=== PATIENT | male | born 1955 | race Caucasian/White ===

== ENCOUNTER 2019-09-21 20:28 | Emergency (ER) | payer SELFPAY | END 2019-09-22 03:17 | disposition left against medical advice (07) | LOC: ER 20:28 | DX: R10.9 Unspecified abdominal pain (principal); Z53.21 Procedure and treatment not carried out due to patient leaving prior to being seen by health care provider ==

== ENCOUNTER 2019-12-16 16:57 | Emergency (ER) | payer SELFPAY ==
[~2019-12-16] VITALS: Ht 177.8 cm; Wt 82.0 kg
[2019-12-16] MEDS ORDERED: ONDANSETRON HCL 4MG/2ML INJ IV STA ×3 (17:25→20:49)
[2019-12-16] MEDS ORDERED: MORPHINE SULFATE 4 MG/ML CPJ (NOT FOR IM USE) IV STA ×3 (17:25→20:49)
[2019-12-16] MEDS ORDERED: SODIUM CHLORIDE 0.9% 1,000 ML IV ONE (17:25)
[2019-12-16] MEDS ORDERED: KETOROLAC 15MG/ML VIAL IV ONE (17:30)
[2019-12-16 17:47] LABS: HEMATOCRIT. 38.8 % (42.0-52.0); HEMOGLOBIN. 13.6 g/dL (14.0-18.0); MEAN CORPUSCULAR HEMOGLOBIN 30.2 pg (28.0-32.0); MEAN CORPUSCULAR VOLUME 86.2 fL (80.0-94.0); MEAN PLATELET VOLUME 6.9 fl (7.4-10.4); PLATELET 237 x1000/uL (130-400)
[2019-12-16 17:54] LABS: CHLORIDE 104 mEq/L (98-107)
[2019-12-16 18:00] LABS: PLATELET ESTIMATE NORMAL
[2019-12-16] MEDS ORDERED: VANCOMYCIN 1 G PREMIX 200 ML IV SCH (18:15)
[2019-12-16] MEDS ORDERED: PIPERACILLIN/TAZ 3.375G PREMIX 50 ML IV ONE (18:15)
[2019-12-16] MEDS ORDERED: CLINDAMYCIN 600 MG in DEXTROSE 5% WATER 50 ML IV ONE (20:45)
[2019-12-16] MEDS ORDERED: TETANUS, DIPHTHERIA, PERTUSSIS VAC/PF 0.5ML (>7YR OLD) IM ONE (21:00)
[2019-12-16 23:16] VITALS: BP 161/80
== END 2019-12-16 23:58 | disposition left against medical advice (07) ==
LOC: ER 16:57
DX: L03.114 Cellulitis of left upper limb (principal); S63.602A Unspecified sprain of left thumb, initial encounter; S63.611A Unspecified sprain of left index finger, initial encounter; I10 Essential (primary) hypertension; W19.XXXA Unspecified fall, initial encounter; Y93.89 Activity, other specified; Y92.89 Other specified places as the place of occurrence of the external cause
CPT/HCPCS: 36415; 71045; 73110; 73130; 80053; 85025; 87040; 90471; 90715; 93005; 96365; 96366; 96367; 96368; 96375; 96376; 99285; J1885; J2270; J2405; J2543; J3370; J3490; J7030; J7060; U0003-CS